=== PATIENT | male | born 1975 | race Caucasian/White ===

== ENCOUNTER 2018-08-10 08:41 | Day surgery (SDC) | payer MEDICAID ==
[2018-08-10] MEDS ORDERED: PROPOFOL 20 ML (10:46)
[2018-08-10] MEDS ORDERED: FENTAnyl 50 MCG/ML VIAL (10:46)
== END 2018-08-10 11:37 | disposition home or self-care (01) ==
LOC: GIL 08:41
DX: K21.9 Gastro-esophageal reflux disease without esophagitis (principal); R10.10 Upper abdominal pain, unspecified; R12 Heartburn; K29.60 Other gastritis without bleeding; E66.9 Obesity, unspecified; Z68.27 Body mass index [BMI] 27.0-27.9, adult
CPT/HCPCS: 43239; 88305; 88312